=== PATIENT | female | born 1985 | race Asian ===

== ENCOUNTER → 2024-01-12 15:29 | Outpatient (REF) | payer OTHER, SELFPAY | LOC: REG 15:29 | PROVIDERS: ATTENDING PHYSICIAN Nurse Practitioner Acute Care; FAMILY PHYSICIAN Family Medicine | DX: Z32.00 Encounter for pregnancy test, result unknown (principal) | CPT/HCPCS: 36415; 84702 ==

== ENCOUNTER → 2024-04-01 15:34 | Outpatient (REF) | payer OTHER, SELFPAY | LOC: PNTC 15:34 | PROVIDERS: ATTENDING PHYSICIAN Obstetrics & Gynecology | DX: O09.529 Supervision of elderly multigravida, unspecified trimester (principal) | CPT/HCPCS: 76805 ==

== ENCOUNTER → 2024-04-26 09:35 | Outpatient (REF) | payer OTHER, SELFPAY | LOC: PNTC 09:35 | PROVIDERS: ATTENDING PHYSICIAN Obstetrics & Gynecology | DX: O09.519 Supervision of elderly primigravida, unspecified trimester (principal) | CPT/HCPCS: 76811 ==

== ENCOUNTER → 2024-05-07 13:33 | Outpatient (REF) | payer OTHER, SELFPAY | LOC: RAD 13:33 | PROVIDERS: ATTENDING PHYSICIAN Student in an Organized Health Care Education/Training Program; FAMILY PHYSICIAN Family Medicine | DX: O26.859 Spotting complicating pregnancy, unspecified trimester (principal) | CPT/HCPCS: 76815 ==

== ENCOUNTER → 2024-06-28 08:48 | Outpatient (REF) | payer OTHER, SELFPAY | LOC: PNTC 08:48 | PROVIDERS: ATTENDING PHYSICIAN Obstetrics & Gynecology | DX: O09.519 Supervision of elderly primigravida, unspecified trimester (principal); O99.210 Obesity complicating pregnancy, unspecified trimester | CPT/HCPCS: 76816 ==

== ENCOUNTER → 2024-08-09 07:54 | Outpatient (REF) | payer OTHER, SELFPAY | LOC: PNTC 07:54 | PROVIDERS: ATTENDING PHYSICIAN Obstetrics & Gynecology | DX: O09.529 Supervision of elderly multigravida, unspecified trimester (principal); O99.210 Obesity complicating pregnancy, unspecified trimester | CPT/HCPCS: 76816 ==

== ENCOUNTER → 2024-08-20 08:12 | Outpatient (REF) | payer BC, SELFPAY | LOC: CLAB 08:12 | PROVIDERS: ATTENDING PHYSICIAN Obstetrics & Gynecology | DX: Z36.85 Encounter for antenatal screening for Streptococcus B (principal) | CPT/HCPCS: 87070 ==

== ENCOUNTER → 2024-09-01 15:11 | Outpatient (REF) | payer BC, SELFPAY | LOC: PNTC 15:11 | PROVIDERS: ATTENDING PHYSICIAN Student in an Organized Health Care Education/Training Program | DX: O36.8190 Decreased fetal movements, unspecified trimester, not applicable or unspecified (principal) | CPT/HCPCS: 59025; 76815 ==

== ENCOUNTER 2024-09-07 05:17 | Inpatient (IN) | payer BC, SELFPAY ==
[2024-09-07 05:41] VITALS: BP 112/74; BMI 35.3
[2024-09-07 06:47] LABS: % Basophils 0.2 % (0-2); % Eosinophils 1.5 % (0-6); % Immature Granulocytes 0.4 % (0-0.5); % Lymphocytes 21.4 % (20.5-51.1); % Monocytes 5.6 % (1.7-9.3); % Neutrophils 70.9 % (42.2-75.2); Absolute Eosinophils 0.2 10^3/uL (0-0.7); Absolute Lymphocytes 2.1 10^3/uL (1.2-3.4); Absolute Monocytes 0.6 10^3/uL (0.1-0.6); Absolute Neutrophils 7.1 10^3/uL (1.4-6.5); Hemoglobin 14.8 g/dL (12.0-16.0); Mean Corp Hgb Conc. 35.2 g/dL (33.0-37.0); Mean Corpuscular Hgb 30.8 pg (27.0-31.0); Mean Corpuscular Volume 87.3 fL (81.0-99.0); Mean Platelet Volume 9.5 fL (7.4-10.4); Nucleated Red Blood Cells % 0 %; Platelet Count 224 10^3/uL (130-400); Red Blood Cell Count 4.81 10^6/uL (4.20-5.40); Red Cell Dist. Width 12.7 % (11.5-14.5)
[2024-09-07] MEDS: PITOCIN 30 UNITS/NSS 500 ML IV ×2 (11:11→23:36)
[2024-09-07] MEDS: SUBLIMAZE 100 MCG EPIDURAL (15:16)
[2024-09-07] MEDS: FENTANYL/BUPIVACAINE 100 EPIDURAL (15:16)
[2024-09-08] MEDS: MOTRIN 600 MG PO ×4 (03:04→21:10)
[2024-09-08 06:39] LABS: Hematocrit 36.6 % (37.0-47.0); Hemoglobin 12.9 g/dL (12.0-16.0)
[2024-09-08] MEDS: SENOKOT-S 1 TABLET PO (07:44)
[2024-09-08] MEDS: PRENATAL PLUS 1 TABLET PO (07:44)
[2024-09-09] MEDS: TYLENOL 650 MG PO ×2 (00:50→06:36)
[2024-09-09] MEDS: MOTRIN 600 MG PO (04:11)
[2024-09-09] MEDS: PRENATAL PLUS 1 TABLET PO (08:30)
[2024-09-10 16:47] LABS: Syphilis/T. pallidum Ab Reflex Negative (Negative)
== END 2024-09-09 14:31 | disposition home or self-care (01) | DRG 807 ==
LOC: LDRP 05:17
PROVIDERS: Obstetrics & Gynecology; Student in an Organized Health Care Education/Training Program; ADMITTING PHYSICIAN Obstetrics & Gynecology; ATTENDING PHYSICIAN Obstetrics & Gynecology
PROC: 0UQGXZZ Repair Vagina, External Approach (ICD-10-PCS; 2024-09-07)
PROC: 4A1HXCZ Monitoring of Products of Conception, Cardiac Rate, External Approach (ICD-10-PCS; 2024-09-07)
PROC: 0KQM0ZZ Repair Perineum Muscle, Open Approach (ICD-10-PCS; 2024-09-07)
PROC: 10E0XZZ Delivery of Products of Conception, External Approach (ICD-10-PCS; 2024-09-07)
DX: O99.214 Obesity complicating childbirth (principal); Z37.0 Single live birth; O70.1 Second degree perineal laceration during delivery; Z3A.39 39 weeks gestation of pregnancy; O90.81 Anemia of the puerperium; O77.0 Labor and delivery complicated by meconium in amniotic fluid; O32.6XX0 Maternal care for compound presentation, not applicable or unspecified
CPT/HCPCS: 36415; 85014; 85018; 85025; 86780; 86850; 86900; 86901

== ENCOUNTER → 2025-04-15 09:27 | Outpatient (REF) | payer BC, SELFPAY ==
[2025-04-15 11:21] LABS: Hematocrit 43.2 % (37.0-47.0); Hemoglobin 14.7 g/dL (12.0-16.0); Mean Corp Hgb Conc. 34.0 g/dL (33.0-37.0); Mean Corpuscular Volume 87.4 fL (81.0-99.0); Nucleated Red Blood Cells % 0 %; Platelet Count 332 10^3/uL (130-400); Red Cell Dist. Width 12.3 % (11.5-14.5)
[2025-04-15 11:58] LABS: ALT (SGPT) 90 U/L (0-35); AST (SGOT) 27 U/L (14-36); Albumin 4.7 g/dl (3.5-5.0); Alkaline Phosphatase 83 U/L (38-126); Blood Urea Nitrogen 16 mg/dl (7-17); Calcium 9.5 mg/dl (8.4-10.2); Carbon Dioxide 28 mmol/L (22-30); Chloride 103 mmol/L (98-107); Glucose 86 mg/dl (70-99); HDL Cholesterol 65 mg/dl; LDL Cholesterol, Calculated 173 mg/dl; Potassium 4.4 mmol/L (3.5-5.1); Sodium 138 mmol/L (135-145); Total Protein 7.8 g/dl (6.3-8.2); Very Low Density Lipoprotein 25 mg/dl (0-30); eGFR > 60.00
== END ==
LOC: REG 09:27
PROVIDERS: ATTENDING PHYSICIAN Family Medicine
DX: Z00.00 Encounter for general adult medical examination without abnormal findings (principal)
CPT/HCPCS: 36415; 80053; 80061; 84443; 85025